=== PATIENT | female | born 1990 | race Caucasian/White ===

== ENCOUNTER 2017-06-01 18:19 | Emergency (ER) | payer OTHER ==
[~2017-06-01] VITALS: Ht 162.6 cm; Wt 49.9 kg
[2017-06-01] MEDS ORDERED: KETOROLAC TROMETHAMINE 60 MG INJ IM ONE ×2 (19:00→19:06)
[2017-06-01] MEDS ORDERED: HYDROCODONE/APAP 5-325MG TABLET PO ONE (19:00)
[2017-06-01] MEDS ORDERED: HYDROCODONE/APAP 5-325MG TABLET ONE (19:06)
--- NOTE | 2017-06-01 21:01 | NUR ---
Patient discharged to home in stable conditon. Written and verbal after care instructions given. Patient verbalizes understanding of instructions.
== END 2017-06-01 21:10 | disposition home or self-care (01) ==
LOC: ER 18:20
DX: S50.812A Abrasion of left forearm, initial encounter (principal); Z88.1 Allergy status to other antibiotic agents; W18.30XA Fall on same level, unspecified, initial encounter; Y93.89 Activity, other specified; Y92.89 Other specified places as the place of occurrence of the external cause; Y99.8 Other external cause status
CPT/HCPCS: 36415; 72100; 72220; 84703; A4663; J1885